=== PATIENT | female | born 1995 | race Caucasian/White ===

== ENCOUNTER 2020-07-12 20:25 | Outpatient (CLI) | payer MEDICAID ==
[~2020-07-12] VITALS: Ht 162.6 cm; Wt 66.8 kg
[~2020-07-12 20:25] MED LIST: FERROUS SU325 MG/TAB PO; IBU800 M1 PO; PERCOCET 325 MG1 TA2 PO; PRENATAL MVI; TUMS EXTRA STR750 MG PO
--- NOTE | 2020-07-12 20:33 | NUR ---
Anbulatory to unit accompanied by significant other. Pt reports "I'm not sure if my water broke or I peed myself" Oriented to room ,monitor, plan of care. SVE without gel, amniotrace with no fluid indicated, no color chnge. SVE with gel no fluid noted, cervix closed. Findings reviewed with pt and partner.
[2020-07-12 21:00] VITALS: BP 120/80; PULSE 101; TEMP 97.9
[2020-07-12] MEDS ORDERED: ZOLOFT 100MG100 MG PO (21:13)
[2020-07-12] MEDS ORDERED: PROTONIX 40MG T40 MG PO (21:13)
== END 2020-07-12 21:40 | disposition home or self-care (01) ==
LOC: LDRO 20:25 → LDR 20:25 → LDRO 21:40
DX: O26.893 Other specified pregnancy related conditions, third trimester (principal); Z3A.37 37 weeks gestation of pregnancy; Z87.59 Personal history of other complications of pregnancy, childbirth and the puerperium
CPT/HCPCS: OP

== ENCOUNTER → 2020-07-22 | Outpatient (CLI) | payer MEDICAID ==
[~2020-07-22] MED LIST changes: +NATURAL MAGNES200 MG PO; +PROTONIX 40MG T40 MG PO; +ZOLOFT 100MG100 MG PO; +ZOLOFT 25MG25 MG PO
== END | disposition still patient (30) ==
LOC: ZCOL.LAB
DX: Z20.828 Contact with and (suspected) exposure to other viral communicable diseases (principal)

== ENCOUNTER 2022-03-17 10:50 | Inpatient (IN) | payer BC, MEDICAID ==
[~2022-03-17] VITALS: Ht 162.6 cm; Wt 72.3 kg
[2022-03-17] VITALS (17 sets, daily range): BP systolic 96–127; BP diastolic 54–97; PULSE 48–99; TEMP 97.6–98.6
[~2022-03-17 10:50] MED LIST changes: +FIORICET 325 MG1 TA1 PO; +ZYRTEC 10MG10 MG PO
--- NOTE | 2022-03-17 11:00 | NUR ---
Pt arrived on the unit via wheelchair escorted by and with concerns for SROM. Pt reports leaking clear fluid starting at 0300 this morning. Pt denies any regular contractions or vaginal bleeding and reports normal movement. EFM and toco monitors started. Vital signs WNL. Amnio-trace positive and pt requesting to not do a SVE unless truly needed. Information reviewed with Dr. Valenzuela. See physician notification for details.
[2022-03-17 11:44] LABS: BASO % 0.2 % (0.0-2.0); EOS # 0.1 K/mm3 (0.0-0.7); EOS % 0.7 % (0.0-4.0); GRAN # 7.1 K/mm3 (1.4-6.5); GRAN % 72.8 % (42.2-75.2); HEMOGLOBIN 12.4 g/dl (12.5-16.0); MEAN CELL VOLUME 90 fl (80.0-100.0); MEAN CORPUSCULAR HEMOGLOBIN 30 pg (27-31); MEAN CORPUSCULAR HGB CONC 34 g/dl (33.0-37.0); MEAN PLATELET VOLUME 12.4 fl (7.4-10.4); MONO # 0.6 K/mm3 (0.1-0.6); MONO % 5.9 % (1.7-9.3); PLATELET COUNT 183 K/mm3 (130-400); RED BLOOD COUNT 4.08 M/mm3 (4.10-5.30); REDCELL DISTRIBUTION WIDTH-CV 12.6 % (11.5-14.5)
[2022-03-17 12:04] LABS: HEMATOCRIT 36.7 % (37.0-47.0)
--- NOTE | 2022-03-17 14:21 | NUR ---
1300-PT TRANSFERRED TO PACU IN STABLE CONDITION. PER ANESTHESIA PT HAS SINUS ARRYTHMIA.
[2022-03-18 00:30] VITALS: BP 116/71; PULSE 56; TEMP 97.7
[2022-03-18 07:17] VITALS: BP 115/75; PULSE 60; TEMP 97.7
[2022-03-18] MEDS ORDERED: IBU800 M1 PO (11:28)
[2022-03-18] MEDS ORDERED: PERCOCET 325 MG1 TA2 PO (11:28)
[2022-03-18 12:15] VITALS: BP 102/54; PULSE 56; TEMP 98.2
[2022-03-18 16:35] VITALS: BP 116/57; PULSE 65; TEMP 98.5
[2022-03-18 23:30] VITALS: BP 114/62; PULSE 70; TEMP 97.8
[2022-03-19 08:30] VITALS: BP 120/70; PULSE 75; TEMP 98.1
--- NOTE | 2022-03-19 09:55 | NUR ---
Initial visit; Patient and her thanked Floor Covering Printer Assistant for offering congratulations and God's blessings for the of their daughter. Floor Covering Printer Assistant thanked family for choosing [facility].
--- NOTE | 2022-03-19 10:03 | NUR ---
DISCHARGE TEACHING COMPLETED. EDUCATED ON FOLLOW UP APPOINTMENTS AND PRESCRIPTIONS. QUESTIONS INVITED AND ANSWERED.
== END 2022-03-19 10:40 | disposition home or self-care (01) | DRG 786 ==
LOC: LDRO 10:50 → OB 11:21 → LDR 11:21 → OB 15:17
PROVIDERS: ADMIT Obstetrics & Gynecology
PROC: 10D00Z1 Extraction of Products of Conception, Low, Open Approach (ICD-10-PCS; principal; 2022-03-17)
DX: O34.211 Maternal care for low transverse scar from previous cesarean delivery (principal); O99.42 Diseases of the circulatory system complicating childbirth; O99.62 Diseases of the digestive system complicating childbirth; K21.9 Gastro-esophageal reflux disease without esophagitis; O99.353 Diseases of the nervous system complicating pregnancy, third trimester; G43.909 Migraine, unspecified, not intractable, without status migrainosus; I49.8 Other specified cardiac arrhythmias; O69.81X0 Labor and delivery complicated by cord around neck, without compression, not applicable or unspecified; Z3A.38 38 weeks gestation of pregnancy; Z37.0 Single live birth; Z88.0 Allergy status to penicillin; Z88.2 Allergy status to sulfonamides; Z88.5 Allergy status to narcotic agent; I25.10 Atherosclerotic heart disease of native coronary artery without angina pectoris
CPT/HCPCS: J0690; J1100; J1885; J2370; J2405; J2590; J3010; J7120